=== PATIENT | female | born 1940 | race Caucasian/White ===

== ENCOUNTER 2016-09-14 15:07 | Emergency (ER) | payer MEDICARE ==
[~2016-09-14 15:07] MED LIST: ACIDOPHILUS LA1 EACH PO; ALDACTONE25 MG PEG; ARICEPT10 MG PO; ASCORBIC ACID500 MG PEG; BACTRIM DS TAB1 EACH PEG; CALMOSEPTINE113 GM EXT; CHILDREN'S160 MG/51 PEG; CIPRO500 MG PO; CLEOCIN HCL300 MG PO; DESYREL50 MG PEG; ENSURE PLUS237 ML PO; FEOSOL325 MG PEG; FERROUS SU300 MG/5 M PO; FLAGYL500 MG PO; FLANDERS BUTTO113 GM TOP; FLANDERS BUTTO113 GM TP; FOLIC ACID1 MG PO; HALDOL1 MG PEG; IMODIUM2 MG PEG; IMODIUM2 MG PO; JEVITY 1.5 CA1500 ML PO; JUVEN PACKET1 EACH PEG; JUVEN PACKET1 EACH PO; KLONOPIN1 MG PEG; NAMENDA10 MG PEG; NAMENDA10 MG PO; NEXIUM40 MG PEG; NORVASC5 MG PEG; NYSTATIN1 EAC1 PO; PRAVACHOL40 MG PO; RISPERDAL0.5 MG PEG; RISPERDAL1 MG PO; SENSI CARE PET113 GM TOP; SULFAMETHOXAZO473 ML PEG; TETRACYCLINE H500 MG PO; TRAZODONE HCL50 MG PEG; TYLENOL325 M1 PO; XARELTO20 MG PO; ZOCOR20 MG PEG; ZOLOFT50 MG PO
[2016-09-14 15:48] LABS: URINE BILIRUBIN NEGATIVE (NEGATIVE); URINE BLOOD TRACE (NEGATIVE); URINE GLUCOSE (UA) NORMAL (NORMAL); URINE KETONE NEGATIVE (NEGATIVE); URINE LEUKOCYTE ESTERASE 1+ (NEGATIVE); URINE NITRATE NEGATIVE (NEGATIVE); URINE PROTEIN 1+ (NEGATIVE); UROBILINOGEN NORMAL mg/dL (<1.0)
[2016-09-14 16:00] LABS: URINE BACTERIA FEW (NONE SEEN); URINE RBC 0-5 /[HPF] (0-2); URINE SQUAMOUS EPITHELIAL CELL 0-10 /[HPF] (NONE SEEN); URINE WBC >15 /[HPF] (0-5)
== END 2016-09-14 17:08 | disposition home or self-care (01) ==
LOC: ER 15:07
PROVIDERS: Internal Medicine
DX: N39.0 Urinary tract infection, site not specified (principal); G30.9 Alzheimer's disease, unspecified; F02.80 Dementia in other diseases classified elsewhere, unspecified severity, without behavioral disturbance, psychotic disturbance, mood disturbance, and anxiety; Z93.1 Gastrostomy status; Z99.81 Dependence on supplemental oxygen; Z79.899 Other long term (current) drug therapy
CPT/HCPCS: 81001; 87086; 87186; 99283

== ENCOUNTER 2016-10-03 15:15 | Emergency (ER) | payer MEDICARE ==
[2016-10-03 16:13] LABS: URINE BILIRUBIN NEGATIVE (NEGATIVE); URINE BLOOD 1+ (NEGATIVE); URINE GLUCOSE (UA) NORMAL (NORMAL); URINE KETONE NEGATIVE (NEGATIVE); URINE LEUKOCYTE ESTERASE 2+ (NEGATIVE); URINE NITRATE POSITIVE (NEGATIVE); URINE PROTEIN 1+ (NEGATIVE)
[2016-10-03 17:01] LABS: URINE BACTERIA 3+ (NONE SEEN); URINE SQUAMOUS EPITHELIAL CELL 0-10 /[HPF] (NONE SEEN); URINE WBC >15 /[HPF] (0-5)
[2016-10-03 17:02] LABS: BASO % 0.2 % (0.1-1.2); EOS # 0.5 10_X3_uL (0.0-0.4); EOS % 3.6 % (0.7-5.8); GRAN # 8.7 10_X3_uL (1.6-6.1); GRAN % 70.7 % (34.0-71.1); HEMATOCRIT 27.3 % (34-45); HEMOGLOBIN 8.3 g/dL (11.2-15.7); LYMPH % 16.4 % (19.3-51.7); MEAN CORPUSCULAR HEMOGLOBIN 27.9 pg (27.0-33.0); MEAN CORPUSCULAR HGB CONC 30.4 g/dL (32.0-36.0); MEAN CORPUSCULAR VOLUME 91.9 fL (79-95); MEAN PLATELET VOLUME 9.2 fl (7.5-11.5); MONO # 1.1 10_X3_uL (0.2-0.9); MONO % 9.1 % (4.7-12.5); PLATELET COUNT 331 x10_3/uL (182-369); RED BLOOD COUNT 2.97 x10_6/uL (3.9-5.2); RED CELL DISTRIBUTION WIDTH 16.4 % (11.7-14.4); WHITE BLOOD COUNT 12.4 x10_3/uL (4.0-10.0)
[2016-10-03 17:19] LABS: ALKALINE PHOSPHATASE 101 U/L (50-136); ALT/SGPT 22 U/L (3.5-33.9); AST/SGOT 21 U/L (7.04-26.96); BILIRUBIN,TOTAL 0.32 mg/dL (0.0-1.0); BLOOD UREA NITROGEN 25 mg/dL (7-18); CALCIUM 8.5 mg/dL (8.7-10.7); CARBON DIOXIDE 24 mmol/L (21-32); CREATININE 0.8 mg/dL (0.6-1.3); GLUCOSE,RANDOM 83 mg/dL (70-99); POTASSIUM 4.4 mmol/L (3.5-5.1); SODIUM 138 mmol/L (136-145); TOTAL PROTEIN 7.9 gm/dL (6.4-8.2)
== END 2016-10-03 19:30 | disposition home or self-care (01) ==
LOC: ER 15:15
PROVIDERS: Emergency Medicine
DX: N30.90 Cystitis, unspecified without hematuria (principal); Z93.1 Gastrostomy status; G30.9 Alzheimer's disease, unspecified; F02.80 Dementia in other diseases classified elsewhere, unspecified severity, without behavioral disturbance, psychotic disturbance, mood disturbance, and anxiety; Z79.899 Other long term (current) drug therapy
CPT/HCPCS: 36415; 71010; 80053; 81001; 85025; 87086; 87186; 96372; 99283; 99283-25